=== PATIENT | male | born 1990 | race Caucasian/White ===

== ENCOUNTER 2020-10-07 12:40 | Emergency (ER) | payer OTHER ==
[~2020-10-07] VITALS: Ht 172.7 cm; Wt 63.5 kg
[2020-10-07 12:42] VITALS: BP 134/74
--- NOTE | 2020-10-07 12:48 | NUR ---
PATIENT AMBULATED TO ER BED 11
--- NOTE | 2020-10-07 12:50 | NUR ---
30 y/o male from home c/o right testicle pain that radiates to right groin x 30 min prior to arrival. Denies penile pain/discharge. States 10/10 pain. Unable to sit still, screamining and pacing stating "i need medication for pain". Skin warm, dry, intact. VSS medhx: denies
--- NOTE | 2020-10-07 12:51 | NUR ---
Dr Rodriguez at bedside examining patient.
[2020-10-07] MEDS ORDERED: MORPHINE SULFATE 4 MG/ML SYR IVP ONE (12:55)
[2020-10-07] MEDS ORDERED: MORPHINE SULFATE 10 MG/ML VIAL IVP ONE (13:00)
[2020-10-07] MEDS ORDERED: MORPHINE SULFATE 2 MG/ML SYR ONE (13:02)
--- NOTE | 2020-10-07 13:04 | NUR ---
Ultrasound at bedside
--- NOTE | 2020-10-07 13:32 | NUR ---
Dr. Rodriguez at pt bedside.
[2020-10-07 14:06] LABS: BASOPHILS # (AUTO) 0.1 K/uL (0.00-0.22); BASOPHILS % (AUTO) 0.9 % (0.0-2.0); EOSINOPHILS # (AUTO) 0.2 K/uL (0-0.4); EOSINOPHILS % (AUTO) 2.9 % (0.0-4.0); HEMATOCRIT 45.3 % (36-52); LYMPHOCYTES # (AUTO) 1.6 K/uL (2.0-11.5); LYMPHOCYTES % (AUTO) 20.2 % (20.5-51.1); MEAN CORPUSCULAR HEMOGLOBIN 29 pg (27-31); MEAN CORPUSCULAR HGB CONC 33 g/dL (33-37); MEAN CORPUSCULAR VOLUME 86.9 fL (80-94); MONOCYTES # (AUTO) 0.5 K/uL (0.8-1.0); NEUTROPHILS # (AUTO) 5.6 K/uL (1.8-7.7); PLATELET COUNT (AUTO) 257 K/uL (140-450); RED BLOOD CELL COUNT(AUTO) 5.21 MIL/uL (4.20-6.10); RED CELL DISTRIBUTION WIDTH 13.8 % (11.6-13.7)
--- NOTE | 2020-10-07 14:12 | NUR ---
Pt taken to CT via [facility]
--- NOTE | 2020-10-07 14:21 | NUR ---
Pt brought back from CT via [facility].
[2020-10-07 14:34] LABS: ALBUMIN 4.2 g/dL (3.4-5.0); ANION GAP 11.1 (8-16); CARBON DIOXIDE 27.4 mmol/L (21-32); POTASSIUM 3.5 mmol/L (3.5-5.1); TOTAL BILIRUBIN 1.5 mg/dL (0.0-1.0)
[2020-10-07 15:10] VITALS: BP 134/74
--- NOTE | 2020-10-07 15:10 | NUR ---
Patient discharged with v/s stable. Written and verbal after care instructions given and explained. Patient alert, oriented and verbalized understanding of instructions. Ambulatory with steady gait. All questions addressed prior to discharge. ID band removed. Patient advised to follow up with PMD. Rx of tynenol 500mg TID PO, keflex 500mg TID PO, norco 10mg-325mg QID PO, and motrin 600mg q6h PO given. Patient educated on indication of medication including possible reaction and side effects. Opportunity to ask questions provided and answered.
== END 2020-10-07 15:10 | disposition home or self-care (01) ==
LOC: MED 12:40
DX: N20.0 Calculus of kidney (principal)
CPT/HCPCS: 36415; 74176; 76870; 80053; 83690; 85025; 96374; 99285; J2270

== ENCOUNTER 2024-08-31 22:00 | Emergency (ER) | payer OTHER ==
[~2024-08-31] VITALS: Ht 165.1 cm; Wt 54.4 kg
[2024-08-31 22:08] VITALS: BP 140/99; PULSE 69; RESP 18; TEMP 97.5; O2SAT 99
[2024-08-31] MEDS: ALUMINUM HYD/MAG/SIMETHICONE 30 ML UDC PO ONE (22:42)
[2024-08-31 22:48] LABS: BASOPHILS # (AUTO) 0.1 K/uL (0.00-0.22); BASOPHILS % (AUTO) 0.8 % (0.0-2.0); EOSINOPHILS # (AUTO) 0.1 K/uL (0-0.4); EOSINOPHILS % (AUTO) 1.4 % (0.0-4.0); HEMATOCRIT 42.9 % (36-52); HEMOGLOBIN 14.4 g/dL (12.0-18.0); LYMPHOCYTES # (AUTO) 1.4 K/uL (2.0-11.5); LYMPHOCYTES % (AUTO) 15.7 % (20.5-51.1); MEAN CORPUSCULAR HEMOGLOBIN 28 pg (27-31); MEAN CORPUSCULAR HGB CONC 34 g/dL (33-37); MEAN CORPUSCULAR VOLUME 82.8 fL (80-94); MONOCYTES # (AUTO) 0.8 K/uL (0.8-1.0); MONOCYTES % (AUTO) 9.4 % (1.7-9.3); NEUTROPHILS # (AUTO) 6.4 K/uL (1.8-7.7); NEUTROPHILS % (AUTO) 72.7 % (42.2-75.2); PLATELET COUNT (AUTO) 427 K/uL (140-450); RED BLOOD CELL COUNT(AUTO) 5.19 MIL/uL (4.20-6.10); RED CELL DISTRIBUTION WIDTH 13.6 % (11.6-13.7); WHITE BLOOD COUNT (AUTO) 8.8 K/uL (4.8-10.8)
[2024-08-31 23:09] LABS: ANION GAP 6.7 (8-16); CALCIUM 9.1 mg/dL (8.5-10.1); CARBON DIOXIDE 34.8 mmol/L (21-32); CREATININE 1.1 mg/dL (0.6-1.3); POTASSIUM 4.5 mmol/L (3.5-5.1)
[2024-08-31 23:12] LABS: ALBUMIN 2.9 g/dL (3.4-5.0); BILIRUBIN,DIRECT 0.2 mg/dL (0.0-0.3); TOTAL BILIRUBIN 0.5 mg/dL (0.0-1.0); TOTAL PROTEIN, SERUM 7.7 g/dL (6.4-8.2)
[2024-08-31] MEDS ORDERED: ONDA-188 SL (23:36)
[2024-08-31] MEDS ORDERED: FAMO-92 PO (23:36)
[2024-08-31] MEDS ORDERED: SUCR1TAB56 PO (23:36)
[2024-08-31 23:40] VITALS: BP 121/80; PULSE 76; RESP 18; TEMP 98; O2SAT 99
== END 2024-08-31 23:40 | disposition home or self-care (01) ==
LOC: MED 22:00
DX: K29.70 Gastritis, unspecified, without bleeding (principal); R03.0 Elevated blood-pressure reading, without diagnosis of hypertension; Z79.899 Other long term (current) drug therapy
CPT/HCPCS: 36415; 80048; 80076; 83690; 85025; 99283